=== PATIENT | female | born 1980 | race Caucasian/White ===

== ENCOUNTER 2018-02-25 21:08 | Emergency (ER) | payer OTHER ==
[~2018-02-25] VITALS: Ht 162.6 cm; Wt 56.7 kg
[~2018-02-25 21:08] MED LIST: 8 HOUR PAIN RE650 M1 PO; HYDROCODON-ACE1 EAC7 PO; IBUPROFEN 600600 M1 PO
[2018-02-25] MEDS ORDERED: ZPAK PO (21:33)
[2018-02-25 21:46] VITALS: BP 126/77
== END 2018-02-25 21:55 | disposition home or self-care (01) ==
LOC: ER 21:08
DX: J02.0 Streptococcal pharyngitis (principal); R50.9 Fever, unspecified; Z88.0 Allergy status to penicillin